=== PATIENT | female | born 1980 | race Caucasian/White ===

== ENCOUNTER 2025-03-07 07:38 | Emergency (ER) | payer BC ==
[~2025-03-07] VITALS: Ht 170.2 cm; Wt 96.1 kg
[2025-03-07 08:25] LABS: BASOPHILS # (AUTO) 0.1 X10'3 (0-0.2); BASOPHILS % (AUTO) 0.9 % (0-1); EOSINOPHILS # (AUTO) 0.2 X10'3 (0-0.9); EOSINOPHILS % (AUTO) 2.5 % (0-6); HEMATOCRIT 37.9 % (35.0-45.0); HEMOGLOBIN 12.6 g/dl (12.0-16.0); LYMPHOCYTES # (AUTO) 3.1 X10'3 (1.1-4.8); LYMPHOCYTES % (AUTO) 31.4 % (21-51); MEAN CORPUSCULAR HGB CONC 33.3 g/dL (33.0-36.5); MEAN PLATELET VOLUME 7.6 FL (7.4-10.4); MONOCYTES # (AUTO) 0.5 X10'3 (0-0.9); MONOCYTES % (AUTO) 5.4 % (2-12); NEUTROPHILS # (AUTO) 5.8 X10'3 (1.8-7.7); NEUTROPHILS % (AUTO) 59.8 % (42-75); PLATELET COUNT 307 X10'3 (140-440); RED BLOOD COUNT 4.85 X10'6 (4.20-5.60); RED CELL DISTRIBUTION WIDTH 14.6 % (11.5-14.5); WHITE BLOOD COUNT 9.7 X10'3 (4.5-11.0)
[2025-03-07 08:40] LABS: ALANINE AMINOTRANSFERASE 16 U/L (12-78); ALBUMIN/GLOBULIN RATIO 1.1 (1.1-1.5); ALKALINE PHOSPHATASE 76 IU/L (46-116); ANION GAP 10 (8-16); ASPARTATE AMINO TRANSFERASE 14 U/L (10-37); BILIRUBIN,TOTAL 0.2 MG/DL (0.1-1.0); BLOOD UREA NITROGEN 13 MG/DL (7-18); BUN/CREATININE RATIO 17.3 (10.0-20.0); CALCIUM 9.3 MG/DL (8.5-10.1); CHLORIDE 106 MMOL/L (99-107); CREATININE 0.75 MG/DL (0.40-0.90); GLUCOSE 97 MG/DL (70-104); POTASSIUM 3.4 MMOL/L (3.5-5.1); SODIUM 144 MMOL/L (135-145); TOTAL CARBON DIOXIDE 28.4 MMOL/L (24-32); TOTAL PROTEIN 7.7 G/DL (6.4-8.2); eCRCL 91 ML/MIN; eGFR 83 ML/MIN
[2025-03-07 08:45] LABS: PROTHROMBIN TIME 10.3 SECONDS (9.0-12.0)
[2025-03-07 08:48] LABS: PRO BRAIN NATRIURETIC PEPTIDE < 30 PG/ML (0-125)
[2025-03-07 08:51] LABS: HCG SERUM QL NEGATIVE
[2025-03-07 11:59] VITALS: BP 116/79; PULSE 69; RESP 12; TEMP 98; O2SAT 96
== END 2025-03-07 12:01 | disposition home or self-care (01) ==
LOC: ER 07:39
DX: R07.9 Chest pain, unspecified (principal)
CPT/HCPCS: 36415; 71045; 80053; 83880; 84484; 84703; 85025; 85379; 85610; 93005; 99285